=== PATIENT | male | born 2000 | race Two or more races ===

== ENCOUNTER 2024-03-23 11:08 | Emergency (ER) | payer OTHER ==
[~2024-03-23] VITALS: Ht 185.4 cm; Wt 99.8 kg
[2024-03-23 14:42] LABS: HEMATOCRIT 48.8 % (39.0-48.0); HEMOGLOBIN 16.7 g/dL (13-16.00); MEAN CELL VOLUME 83.8 fL (80.0-100.00); MEAN CORPUSCULAR HEMOGLOBIN 28.7 pg (27.00-32.0); MEAN CORPUSCULAR HGB CONC 34.3 g/dl (32.0-36.0); PLATELET COUNT 234 K/uL (150-450); RED BLOOD COUNT 5.82 M/uL (4.00-6.00); RED CELL DISTRIBUTION WIDTH 13.5 % (11.5-14.5)
[2024-03-23 14:47] LABS: URINE APPEARANCE Clear; URINE BILIRRUBIN Negative (NEGATIVE); URINE BLOOD Negative; URINE COLOR Yellow; URINE GLUCOSE Negative (NEGATIVE); URINE KETONE Negative (NEGATIVE); URINE LEUKOCYTE Negative; URINE NITRATE Negative; URINE PROTEIN Negative (NEGATIVE)
[2024-03-23 14:52] LABS: URINE RBC 4.4 uL (0.0-20.8); URINE WBC 14.3 uL (0.0-23.2)
[2024-03-23 15:16] LABS: ALBUMIN 4.4 gm/dL (3.4-5.0); BILIRUBIN TOTAL 0.46 mg/dL (0.3-1.2); CALCIUM 9.2 mg/dL (8.5-10.1); CREATININE SERUM 1.3 mg/dL (0.70-1.30); GFR 67.82; GLOBULINA 3.5 G/DL (2.4-3.5); POTASSIUM 4.39 mEq/L (3.5-5.1); TOTAL PROTEIN 7.9 gm/dL (6.4-8.2)
[2024-03-23 15:32] LABS: URINE BACTERIA 2.4 uL (0.0-1933); URINE EPITHELIAL CELLS 0.1 uL (0.0-38.8)
== END 2024-03-23 15:58 | disposition home or self-care (01) ==
LOC: ER 11:10
PROVIDERS: General Practice
DX: R53.83 Other fatigue (principal)